=== PATIENT | male | born 1970 | race African-American/Black ===

== ENCOUNTER 2023-02-25 08:05 | Outpatient (RCR) | payer OTHER, SELFPAY | END 2023-02-25 16:00 | disposition home or self-care (01) | LOC: HO.WCC 08:05 | PROVIDERS: PCP Internal Medicine; Referring Provider Podiatrist Foot & Ankle Surgery; Visit Provider Surgery | DX: Z09 Encounter for follow-up examination after completed treatment for conditions other than malignant neoplasm (principal); E11.9 Type 2 diabetes mellitus without complications; Z79.4 Long term (current) use of insulin; Z86.31 Personal history of diabetic foot ulcer | CPT/HCPCS: 99212 ==